=== PATIENT | female | born 1935 | race Caucasian/White ===

== ENCOUNTER 2017-01-15 08:59 | Day surgery (SDC) | payer MEDICARE ==
[~2017-01-15] VITALS: Ht 147.3 cm; Wt 64.4 kg
[~2017-01-15 08:59] MED LIST: ASPIR-LOW81 MG PO; LEVOTHYROXINE0.5 GM MISC; LIPITOR20 MG PO; LISINOPRIL20 MG PO; RANITIDINE HCL75 MG PO
== END 2017-01-15 13:05 | disposition home or self-care (01) ==
LOC: DS 08:59 → OPS 08:59 → DS 10:15 → OPS 10:15
PROC: 08RK3JZ Replacement of Left Lens with Synthetic Substitute, Percutaneous Approach (ICD-10-PCS; principal; 2017-01-15)
DX: H25.13 Age-related nuclear cataract, bilateral (principal); I10 Essential (primary) hypertension; E78.00 Pure hypercholesterolemia, unspecified; M19.90 Unspecified osteoarthritis, unspecified site; E07.9 Disorder of thyroid, unspecified; Z87.891 Personal history of nicotine dependence; Z90.710 Acquired absence of both cervix and uterus; Z79.899 Other long term (current) drug therapy
CPT/HCPCS: 00140; J2250

== ENCOUNTER 2017-01-29 08:36 | Day surgery (SDC) | payer MEDICARE ==
[~2017-01-29] VITALS: Ht 147.3 cm; Wt 64.4 kg
== END 2017-01-29 10:40 | disposition home or self-care (01) ==
LOC: OPS 08:36 → DS 08:36 → OPS 09:45 → DS 09:45 → OPS 10:40
PROVIDERS: Ophthalmology
PROC: 08RJ3JZ Replacement of Right Lens with Synthetic Substitute, Percutaneous Approach (ICD-10-PCS; principal; 2017-01-29 09:45)
DX: H25.11 Age-related nuclear cataract, right eye (principal)
CPT/HCPCS: 00140; J2250